=== PATIENT | male | born 1975 | race Caucasian/White ===

== ENCOUNTER 2024-01-17 19:01 | Emergency (ER) | payer OTHER, SELFPAY ==
[2024-01-17 19:06] VITALS: BP 129/101
[2024-01-17 20:04] VITALS: BP 140/105
[2024-01-17 20:06] VITALS: BMI 34.9
--- NOTE | 2024-01-17 20:06 | ED.GENMED ---
History of Present Illness
<FERNANDO Payne - Last Filed: 01/17/24 22:00>
General
Chief Complaint: Head Injury
Source: patient
Exam Limitations: none
Time Seen by Provider: 01/17/24 19:56
History of Present Illness
History of Present Illness:
This is a 48 year old male that comes in with multiple complaints. State that today he was sitting in [employer] and his arms and hands started to shake. States that the back of his neck also felt like it was trembling. States that this stopped after
about 45 min. states that about 1-2 hours after this happened she felt like he almost fainted. States that he has had a headache since the TBI which was on December 30. States that he was also dizzy. states that he stopped his Keppra
about 5-6 days ago as he was finished. Denies any fever, chills, chest pain, SOB, abd pain, nausea, vomiting, diarrhea, urinary burning.
Past History
<FERNANDO Payne - Last Filed: 01/17/24 22:00>
Past History
ED Past Medical History: Asthma, HTN and Other (TBI with Brain bleed, Diverticulitis, )
ED Past Surgical History: Orthopedic (left clavicale repair)
Social History
Tobacco: Former smoker
Alcohol: None
Personal:
Living: with family
Review of Systems
<FERNANDO Payne - Last Filed: 01/17/24 22:00>
Review of Systems
All Other Systems: ROS reviewed and negative except as documented in HPI and ROS
Constitutional: Reports no symptoms; Denies fever or chills
EENT: Reports no symptoms
Respiratory: Reports no symptoms; Denies cough or trouble breathing
Cardiac: Reports no symptoms; Denies chest pain
ABD/GI: Denies abdominal pain, nausea, vomiting or diarrhea
: Reports no symptoms; Denies dysuria, frequency or urgency
Musculoskeletal: Reports no symptoms
Skin: Reports no symptoms
Neurological: Reports dizzy and headache
Psychiatric: Reports no symptoms
Phy Exam
<FERNANDO Payne - Last Filed: 01/17/24 22:00>
General Physical Exam
General Presentation: well appearing and no apparent distress
General age: appears stated age
General Skin: warm and dry
General Habitus: normal
General Mental: alert
General Hydration: appears well hydrated
ENT Exam
ENT Exam: TM's normal, pharynx normal and neck supple
Eye Exam
Eye Exam: EOMI
Cardiovascular Exam
Cardiovascular Exam: regular rate/rhythm, no edema and normal peripheral pulses
Pulmonary Exam
Pulmonary Exam: lungs clear, no respiratory distress, no rales, chest non tender, no crackles, no rhonchi, no wheezing and no cough
Gastrointestinal Exam
Gastrointestinal Exam: normal bowel sounds, non tender, soft, no organomegaly, no pulsatile mass and non distended
Musculoskeletal Exam
Musculoskeletal Exam: full ROM and no edema
Skin Exam
Skin Exam: normal color, warm/dry, no rash and no petechia
Course
<FERNANDO Payne - Last Filed: 01/17/24 22:00>
Orders/Labs/Results
Orders:
Orders
01/17/24 19:[address] [CT Head W/o Iv Contrast] Urgent
Comment: pt had fall with brain bleed 2 weeks ago
Reason For Exam: tremors and shaking
01/17/24 20:06
CT Cervical Spine W/o Iv Contr Urgent
Comment:
Reason For Exam: neck discomfort
0.9% Sodium Chloride 500 ml [Nss] 500 ml IV BOLUS
01/17/24 20:16
Electrocardiogram (*1) Urgent
Reason for Study: Vertigo / Dizzy
EKG- Treatment ONCE
01/17/24 20:20
Complete Blood Count/With Diff Urgent
Comprehensive Metabolic Panel Urgent
Lactic Acid Urgent
01/17/24 21:52
Levetiracetam [Keppra] 500 mg PO NOW STA
Abnormal Lab Results
01/17/24
20:20
Absolute Monos (auto) 0.9 H 10^3/uL
(0.1-0.6)
Lymphocytes % 18.6 L %
(20.5-51.1)
Monocytes % 11.4 H %
(1.7-9.3)
BUN 33 H mg/dl
(9-20)
01/17/24 20:20
01/17/24 20:20
Dehydration,
Vital Signs
Initial and Last Documented VS:
Initial Vital Signs
Temp Pulse Resp BP Pulse Ox
99.0 F 130 20 129/101 99
01/17/24 19:06 01/17/24 19:06 01/17/24 19:06 01/17/24 19:06 01/17/24 19:06
Last Documented Vital Signs
Temp Pulse Resp BP Pulse Ox
99.0 F 130 20 133/99 95
01/17/24 19:06 01/17/24 19:06 01/17/24 19:06 01/17/24 21:00 01/17/24 21:45
<Richie Kelley MD - Last Filed: 01/17/24 21:40>
Orders/Labs/Results
Orders:
Orders
01/17/24 19:[address] [CT Head W/o Iv Contrast] Urgent
Comment: pt had fall with brain bleed 2 weeks ago
Reason For Exam: tremors and shaking
01/17/24 20:06
CT Cervical Spine W/o Iv Contr Urgent
Comment:
Reason For Exam: neck discomfort
0.9% Sodium Chloride 500 ml [Nss] 500 ml IV BOLUS
01/17/24 20:16
Electrocardiogram (*1) Urgent
Reason for Study: Vertigo / Dizzy
EKG- Treatment ONCE
01/17/24 20:20
Complete Blood Count/With Diff Urgent
Comprehensive Metabolic Panel Urgent
Lactic Acid Urgent
01/17/24 21:52
Levetiracetam [Keppra] 500 mg PO NOW STA
Abnormal Lab Results
01/17/24
20:20
Absolute Monos (auto) 0.9 H 10^3/uL
(0.1-0.6)
Lymphocytes % 18.6 L %
(20.5-51.1)
Monocytes % 11.4 H %
(1.7-9.3)
BUN 33 H mg/dl
(9-20)
01/17/24 20:20
01/17/24 20:20
Vital Signs
Initial and Last Documented VS:
Initial Vital Signs
Temp Pulse Resp BP Pulse Ox
99.0 F 130 20 129/101 99
01/17/24 19:06 01/17/24 19:06 01/17/24 19:06 01/17/24 19:06 01/17/24 19:06
Last Documented Vital Signs
Temp Pulse Resp BP Pulse Ox
99.0 F 130 20 133/99 95
01/17/24 19:06 01/17/24 19:06 01/17/24 19:06 01/17/24 21:00 01/17/24 21:45
<FERNANDO Payne - Last Filed: 01/17/24 22:00>
MDM/Problems Addressed
Differential Diagnosis Includes:
Tremors from TBI, Intracranial bleed. Migraines
MDM/Problems Addressed:
This is a 48 year old male that comes in with c/o tremors in the arms and hand today in [employer]. States that he also felt like his neck just didn't feel right. States that this lasted for about 45 min and then stopped. States that he was dizzy today
and his states that he almost fainted.
Will get labs, CT head and neck, Give IV fluids.
Back into see patient. Explained that his CT of his head and neck is normal. Patient blood work shows that he is dehydrated. Encouraged patient to increase his water intake to 8-8oz glasses daily. Discussed with patient if he felt he wanted to go
back on his Keppra and follow up with the Neurologist. Patient states that he would like to do this. Will give patient a dose here and sent a prescription to his pharmacy for a few days. Patient to return with any concerns.
Chronic conditions affecting care:
TBI,
Acute Exacerbation and/or Progression of Chronic Illness:
TBI
<FERNANDO Payne - Last Filed: 01/17/24 22:00>
*Radiology
Radiology exam reviewed: radiology read reviewed (CT head-no acute intracranial abnormality noted. No acute fracture of subluxation of the cervical spine. )
*Pulse Oximetry
Patient hypoxic: no
*EKG
Interpreted by ED Provider?: Yes
Heart Rate: 104
Rate: tachycardiac
Rhythm: sinus
[place]: normal axis
Interval: normal interval
QRS Pattern: normal QRS
Ischemia: no ischemia
*Critical Care Note
Total Time (30-74mins, 75-104mins- exclusive of procedures): Not Applicable
ED Attending Note
<FERNANDO Payne - Last Filed: 01/17/24 22:00>
-
Portions of this chart may have been created with voice recognition software.� Occasional wrong word or��sound alike� substitutions may have occurred due to the inherent limitations of voice recognition software.
<Richie Kelley MD - Last Filed: 01/17/24 21:40>
ED Attending Note
Patient seen and examined by attending physician: Yes
I performed the substantive portion of visit, reviewed & personally made and approve the management plan that is documented in note by myself or MALORIE.: Yes
ED Attending Note:
Patient with recent TBI/intracranial bleed. Was on Keppra that was just stopped recently or he thinks he was supposed to stop it. He had some tremors at [employer] today he was alert during these tremors. Both arms and neck. Has not felt well since
the TBI. Has some memory loss and headaches but this is unchanged. No other acute complaints
On exam patient is nontoxic in no distress. He is mildly anxious. His normocephalic/atraumatic. He is nonfocal. Speech is normal. Lungs are clear and equal. Heart regular rate and rhythm although borderline tachycardia at times. Blood
pressure is mildly elevated. Warm and dry. Perfusing well.
CT head unremarkable. No acute bleed. Tremors possibly could be atypical seizures or just tremors. Discussed plus minuses of restarting Keppra. Also would consider an extra dose of Lopressor given the mild tachycardia and hypertension. He may
have missed doses of his medications in the past. Patient is stable for discharge to follow-up with his neurologist
Discharge Plan
Departure
Patient Disposition: Home (Routine Discharge)
Date of Disposition: 01/17/24
Time of Disposition: 21:55
Patient with high blood pressure during this ER visit?: Yes
Condition: Good
Covid-19: Not Applicable
Discharge Problem:
Tremors arms and hands, Dehydration
Instructions: Essential Tremor, Dehydration, Adult ED, BLOOD PRESSURE
Prescriptions:
New
levetiracetam [Keppra] 500 mg tablet
500 mg PO BID Qty: 20 0RF
Referrals:
Radha Joyce DO [Family Provider] -
Activity Restrictions/Additional Instructions:
As discussed, your blood work shows that you are dehydrated. Please increase your water intake to 8-8oz glasses daily. Your CT of the head and cervical spine is normal. You have decided that you would like to go back on the [facility] until you speak
with your Neurologist. Please call your neurologist tomorrow and make him aware of your Tremors. You have been given your first dose here and a prescription has been sent to your Pharmacy. IF YOU HAVE ANY OTHER CONCERNS PLEASE RETURN TO THE
EMERGENCY ROOM.
Interventions
Interventions:
*Risk Screen - Suicide Last Done: 01/17/24 20:07
*General Assessment Last Done: 01/17/24 19:06
*Neglect/Abuse Screening Last Done: 01/17/24 20:07
ED- Fall Risk Assessment Last Done: 01/17/24 20:07
*ED COVID-19 Vaccine History Last Done: 01/17/24 19:06
ED- Neurological Assessment Last Done: 01/17/24 20:07
ED-Skin Assessment Last Done: 01/17/24 20:07
Discharge Date and Time
Print Language: SLOVAK
[2024-01-17 20:26] LABS: % Eosinophils 3.2 % (0-6); % Immature Granulocytes 0.4 % (0-0.5); % Lymphocytes 18.6 % (20.5-51.1); % Monocytes 11.4 % (1.7-9.3); % Neutrophils 65.4 % (42.2-75.2); Absolute Basophils 0.1 10^3/uL (0-0.2); Absolute Eosinophils 0.3 10^3/uL (0-0.7); Absolute Lymphocytes 1.5 10^3/uL (1.2-3.4); Absolute Monocytes 0.9 10^3/uL (0.1-0.6); Absolute Neutrophils 5.3 10^3/uL (1.4-6.5); Hematocrit 47.6 % (39.0-52.0); Hemoglobin 15.9 g/dL (13.0-18.0); Mean Corp Hgb Conc. 33.4 g/dL (33.0-37.0); Mean Corpuscular Hgb 28.1 pg (27.0-31.0); Mean Corpuscular Volume 84.1 fL (80.0-94.0); Mean Platelet Volume 8.9 fL (7.4-10.4); Nucleated Red Blood Cells % 0 % (-); Platelet Count 274 10^3/uL (130-400); Red Blood Cell Count 5.66 10^6/uL (4.70-6.10); Red Cell Dist. Width 13.2 % (11.5-14.5); White Blood Cell Count 8.1 10^3/uL (4.8-10.8)
[2024-01-17] MEDS: NSS 500 IV (20:30)
[2024-01-17 20:39] LABS: Lactic Acid 1.4 mmol/L (0.7-2.0)
[2024-01-17 20:48] LABS: ALT (SGPT) 32 U/L (0-50); AST (SGOT) 30 U/L (17-59); Albumin 4.5 g/dl (3.5-5.0); Alkaline Phosphatase 60 U/L (38-126); Blood Urea Nitrogen 33 mg/dl (9-20); Calcium 9.6 mg/dl (8.4-10.2); Carbon Dioxide 24 mmol/L (22-30); Chloride 102 mmol/L (98-107); Estimated Creatinine Clearance 89 ml/min; Glucose 96 mg/dl (70-99); Sodium 138 mmol/L (135-145); Total Bilirubin 0.5 mg/dl (0.2-1.3); Total Protein 7.5 g/dl (6.3-8.2); eGFR > 60.00
[2024-01-17 21:00] VITALS: BP 133/99
[2024-01-17] MEDS: KEPPRA 500 MG PO (21:58)
== END 2024-01-17 22:35 | disposition home or self-care (01) ==
LOC: EMR 19:01
PROVIDERS: Clinical Nurse Specialist Family Health; EMERGENCY PHYSICIAN Emergency Medicine; FAMILY PHYSICIAN General Practice
DX: R25.1 Tremor, unspecified (principal); E86.0 Dehydration; J45.909 Unspecified asthma, uncomplicated; I10 Essential (primary) hypertension; Z86.73 Personal history of transient ischemic attack (TIA), and cerebral infarction without residual deficits; Z87.891 Personal history of nicotine dependence
CPT/HCPCS: 99284; 96360; 70450; 72125; 80053; 83605; 85025; 93005